=== PATIENT | female | born 1970 | race Caucasian/White ===

== ENCOUNTER 2016-04-23 15:48 | Inpatient (IN) | payer BC, OTHER ==
[~2016-04-23] VITALS: Ht 165.1 cm; Wt 96.8 kg
--- NOTE | 2016-04-23 16:06 | DIAGNOSTIC IMAGING REPORT ---
CT SCAN OF THE BRAIN WITHOUT IV CONTRAST CLINICAL HISTORY: Strokelike symptoms. COMPARISON STUDY: No priors. TECHNIQUE: Unenhanced axial CT scan of the brain is performed from the vertex to the skull base. Automated dose control exposure was utilized. CT DOSE: 537.48 mGy.cm FINDINGS: Brain parenchyma: There is an 11 mm focus of low-attenuation centered in the left thalamus seen on axial image #13. There is no hemorrhage, mass effect, or evidence of acute territorial ischemia by CT criteria. Bright-white matter is preserved. No extra-axial fluid collection is seen. Ventricles, sulci, cisterns: Normal in configuration. Intracranial vasculature: The visualized intracranial vasculature at the skull base is normal in appearance. Calvarium: Unremarkable. Sinuses and mastoids: The visualized paranasal sinuses are clear. The mastoid air cells are well pneumatized. Orbits: The bony orbits are grossly intact. IMPRESSION: 1. There is no hemorrhage, mass effect, or evidence of acute territorial ischemia by CT criteria. 2. There is an 11 mm focus of low attenuation centered in the left thalamus. This suggests age indeterminant lacunar infarct. Consider MRI for further assessment. Electronically signed by: Christopher Saab M.D. 04/23/2016 4:04 PM Dictated Date/Time: 04/23/2016 4:01 PM
--- NOTE | 2016-04-23 16:12 | EMERGENCY ROOM VISIT NOTE ---
History Report prepared by Juan: Jaden Johnson Under the Supervision of: Dr. Devonte Guzman M.D. First contact with patient: 15:58 Stated Complaint: STROKE ALERT History of Present Illness The patient is a 45 year old female who presents to the Emergency Room with complaints of resolved slurred speech starting this morning. The patient started having blurry vision last night. When she got to work this morning, her co-workers noticed that she was having slurred speech and referred her to the Emergency Room. She currently denies any slurring of speech. She currently denies any pain. The patient denies headache, chest pain, shortness of breath, nausea, abdominal pain, or any other complaints. She does not have any medical problems. The patient denies any personal history of migraine headache but has a family history of migraine headaches. Source of History: patient Onset: this morning Position: other (global) Symptom Intensity: No pain currently Quality: other (slurred speech) Timing: resolved Associated Symptoms: No SOB, No abdominal pain, No chest pain, No headache, No nausea Review of Systems See HPI for pertinent positives & negatives. A total of 10 systems reviewed and were otherwise negative. Past Medical & Surgical Medical Problems: (1) CVA (cerebral vascular accident) (2) No Known Active Medical Problems Family History FH: migraine headache Social History Marital Status: Occupation Status: employed Current/Historical Medications Scheduled Calcium Citrate-Vitamin D (Citracal + D3 Maximum), 1 TAB PO DAILY Ocuvite Preservision (Ocuvite Preservision), 1 TAB PO DAILY Scheduled PRN Famotidine (Pepcid), 1 TAB PO DAILY PRN for ACID REFLUX Allergies Coded Allergies: No Known Allergies (Unverified , 04/23/16) Physical Exam Vital Signs Date Time Temp Pulse Resp B/P Pulse Ox O2 Delivery O2 Flow Rate FiO2 04/23/16 17:31 68 18 131/79 98 Room Air 04/23/16 16:48 84 18 140/89 98 Room Air 04/23/16 16:33 70 04/23/16 16:18 98 Room Air 04/23/16 15:52 36.7 77 18 129/88 97 Room Air Physical Exam CONSTITUTIONAL: Anxious, normal speech. HEENT: No icterus, moist mucous membranes NECK: No meningismus, trachea is midline. CARDIOVASCULAR: Regular rate, normal perfusion RESPIRATORY: Unlabored breathing. Clear to auscultation. GASTROINTESTINAL: Non-tender GENITOURINARY: No flank tenderness MUSCULOSKELETAL: Full range of motion NEUROLOGIC: No acute gross focal deficits. Normal finger to nose. No cranial nerve deficits. Memory intact. PSYCHIATRIC: Normal affect SKIN: Normal for ethnicity. Medical Decision & Procedures ER Provider Diagnostic Interpretation: X-ray results as stated below per my interpretation and radiologist interpretation. CT and MRA results as stated below per my review and radiologist interpretation. CHEST ONE VIEW PORTABLE HISTORY: Stroke symptoms. COMPARISON: None. FINDINGS: The lungs are clear. Cardiac silhouette is normal in size. No pleural effusions. No pneumothorax. IMPRESSION: No acute process. Electronically signed by: Markie Sánchez M.D. 04/23/2016 4:57 PM Dictated Date/Time: 04/23/2016 4:[address] SCAN OF THE BRAIN WITHOUT IV CONTRAST CLINICAL HISTORY: Strokelike symptoms. COMPARISON STUDY: No priors. TECHNIQUE: Unenhanced axial CT scan of the brain is performed from the vertex to the skull base. Automated dose control exposure was utilized. CT DOSE: 537.48 mGy.cm FINDINGS: Brain parenchyma: There is an 11 mm focus of low-attenuation centered in the left thalamus seen on axial image #13. There is no hemorrhage, mass effect, or evidence of acute territorial ischemia by CT criteria. Bright-white matter is preserved. No extra-axial fluid collection is seen. Ventricles, sulci, cisterns: Normal in configuration. Intracranial vasculature: The visualized intracranial vasculature at the skull base is normal in appearance. Calvarium: Unremarkable. Sinuses and mastoids: The visualized paranasal sinuses are clear. The mastoid air cells are well pneumatized. Orbits: The bony orbits are grossly intact. IMPRESSION: 1. There is no hemorrhage, mass effect, or evidence of acute territorial ischemia by CT criteria. 2. There is an 11 mm focus of low attenuation centered in the left thalamus. This suggests age indeterminant lacunar infarct. Consider MRI for further assessment. Electronically signed by: Christopher Saab M.D. 04/23/2016 4:04 PM Dictated Date/Time: 04/23/2016 4:01 PM MRA OF THE INTRACRANIAL CIRCULATION WITHOUT CONTRAST CLINICAL HISTORY: Speech difficulties. Visual disturbance. Stroke alert. COMPARISON STUDY: None. TECHNIQUE: Utilizing a 1.5 Kenna magnet and 3-D [id number] technique, unenhanced MRA of the intracranial circulation was obtained. FINDINGS: The bilateral M1, M2, A1 and A2 segments are patent. No abrupt vessel cut off is identified. No aneurysm is identified on this examination. The posterior circulation is intact. IMPRESSION: Unremarkable MRA of the intracranial circulation. Electronically signed by: Lenin Hawley M.D. 04/23/2016 6:51 PM Dictated Date/Time: 04/23/2016 6:49 PM Laboratory Results 04/23/16 16:10 Red Blood Count 4.10, Mean Corpuscular Volume 93.7, Mean Corpuscular Hemoglobin 32.4, Mean Corpuscular Hemoglobin Concent 34.6, Mean Platelet Volume 9.5, Neutrophils (%) (Auto) 62.4, Lymphocytes (%) (Auto) 29.1, Monocytes (%) (Auto) 5.3, Eosinophils (%) (Auto) 2.8, Basophils (%) (Auto) 0.1, Neutrophils # (Auto) 4.83, Lymphocytes # (Auto) 2.25, Monocytes # (Auto) 0.41, Eosinophils # (Auto) 0.22, Basophils # (Auto) 0.01 04/23/16 16:10 Test 04/23/16 16:10 04/23/16 16:13 04/23/16 16:21 White Blood Count 7.74 K/uL (4.8-10.8) Red Blood Count 4.10 M/uL (4.2-5.4) Hemoglobin 13.3 g/dL (12.0-16.0) Hematocrit 38.4 % (37-47) Mean Corpuscular Volume 93.7 fL (80-100) Mean Corpuscular Hemoglobin 32.4 pg (25-34) Mean Corpuscular Hemoglobin Concent 34.6 g/dl (32-36) Platelet Count 410 K/uL (130-400) Mean Platelet Volume 9.5 fL (7.4-10.4) Neutrophils (%) (Auto) 62.4 % Lymphocytes (%) (Auto) 29.1 % Monocytes (%) (Auto) 5.3 % Eosinophils (%) (Auto) 2.8 % Basophils (%) (Auto) 0.1 % Neutrophils # (Auto) 4.83 K/uL (1.4-6.5) Lymphocytes # (Auto) 2.25 K/uL (1.2-3.4) Monocytes # (Auto) 0.41 K/uL (0.11-0.59) Eosinophils # (Auto) 0.22 K/uL (0-0.5) Basophils # (Auto) 0.01 K/uL (0-0.2) RDW Standard Deviation 45.9 fL (36.4-46.3) RDW Coefficient of Variation 13.3 % (11.5-14.5) Immature Granulocyte % (Auto) 0.3 % Immature Granulocyte # (Auto) 0.02 K/uL (0.00-0.02) Prothrombin Time 10.3 SECONDS (9.0-12.0) Prothromb Time International Ratio 1.0 (0.9-1.1) Activated Partial Thromboplast Time 25.1 SECONDS (21.0-31.0) Partial Thromboplastin Ratio 1.0 Est Creatinine Clear Calc Drug Dose 113.7 ml/min Estimated GFR () 117.6 Estimated GFR (Non- 101.4 BUN/Creatinine Ratio 11.5 (10-20) Calcium Level 9.1 mg/dl (8.5-10.1) Total Creatine Kinase 68 U/L (26-192) Creatine Kinase MB < 0.5 ng/ml (0.5-3.6) Creatine Kinase MB Ratio (0-3.0) Troponin I < 0.015 ng/ml (0-0.045) Bedside Hemoglobin 13.3 g/dl (12.0-16.0) Bedside Hematocrit 39 % (37-47) Bedside Sodium 141 mEq/L (135-144) Bedside Potassium 4.0 mEq/L (3.3-5.0) Bedside Chloride 102 mEq/L (101-112) Bedside Total CO2 27 mEq/l (24-31) Anion Gap 17.0 mmol/L (16-25) Bedside Blood Urea Nitrogen 8 mg/dl (7-18) Bedside Creatinine 0.7 mg/dl (0.6-1.3) Bedside Glucose (other) 89 mg/dl (70-99) Bedside Ionized Calcium (Hollie) 1.17 mmol/l (1.12-1.32) Bedside Prothrombin Time INR 1.0 (0.9-1.1) Bedside Glucose 81 mg/dl (70-90) Labs reviewed by ED physician. Medications Administered Medications (Trade) Dose Ordered Sig/Krys Route Start Time Stop Time Status Last Admin Dose Admin Sodium Chloride (Nss 1000ml) 1,000 ml @ 50 mls/hr Q20H IV 04/23/16 16:14 04/23/16 19:06 DC 04/23/16 16:58 50 MLS/HR Aspirin (Aspirin Chew) 324 mg NOW STAT PO 04/23/16 16:17 04/23/16 16:19 DC 04/23/16 17:06 324 MG Lorazepam 1 mg 1 mg NOW STAT IV 04/23/16 17:20 04/23/16 17:21 DC 04/23/16 18:18 1 MG Sodium Chloride (Nss 1000ml) 1,000 ml @ 75 mls/hr [id number] IV 04/23/16 17:54 05/23/16 17:53 04/23/16 19:59 75 MLS/HR ECG Indication: other (Slurred speech) Rate (beats per minute): 67 Rhythm: normal sinus Findings: no ectopy, other (Normal axis; normal ST segments) ED Course 1558: Past medical records reviewed. The patient was evaluated in room B01. A complete history and physical examination was performed. 1614: Sodium Chloride 1000 ml @ 50 mls/hr IV 1617: Aspirin 324 mg PO 1628: I discussed the patient's case with Dr. Lackey, neurologist with [facility]. 1700: I reevaluated the patient who is resting comfortably. 1712: Upon reexamination the patient is resting comfortably. I discussed results and treatment plan with the patient. She verbalizes agreement and understanding. I spoke with AHSAN Page from the [facility] Service. The patient will be evaluated for further management. 1720: As per nurse, the patient reports that she has claustrophobia and will not be able to do the MRI. Ativan Inj 1 mg IV 1721: I reevaluated the patient. Medical Decision Differential diagnosis includes but is not limited to complex migraine, TIA, stroke. 45-year-old presented to the emergency department for evaluation of potential acute stroke. I received medical command on this patient after she arrived to work with dysarthric speech. I evaluated her immediately on arrival to the emergency department in the CT scanner. At that time she was alert, oriented and appropriate with almost normal speech. Review of systems is notable for nonspecific visual disturbances, infrequent twitching, and potential for dysarthria going back almost 15 hours. There may have been a slight slurring at times during my exam but not severe. She otherwise had no focal neurologic deficits. She also had no additional risk factors for stroke. Given the risks and benefits associated with TPA I feel patient would not benefit from thrombolytic therapy at this time. ASA ordered. CT head report noted for possible thalamic ischemia and consultation was obtained with her she Shamika neurology. We agree that TPA not required but additional workup should be completed. Additional screening labs ordered, Ativan IV given to facilitate anxiety associated MRI and admission arranged with hospital service. Consults Time Called: 1625 Consulting Physician: Dr. Lackey, neurologist with [facility] Returned Call: 1626 I discussed the patient's case with Dr. Lackey, neurologist with [facility]. Additional Consults: Time Called: 1710 Consulted Physician: AHSAN Page from the [facility] Service Returned Call: 1714 Additional Comments: I spoke with AHSAN Page from the [facility] Service. Impression Primary Impression: Acute focal neurological deficit Critical Care I have personally spent greater than 30 minutes of critical care time in the direct management of this patient. This includes bedside care, interpretation of diagnostic studies, and testing, discussion with consultants, patient, and family members, and other required patient management activities. This 30 minutes is in excess of all separately billable procedures. Scribe Attestation The scribe's documentation has been prepared under my direction and personally reviewed by me in its entirety. I confirm that the note above accurately reflects all work, treatment, procedures, and medical decision making performed by me. Departure Information Dispostion Being Evaluated By Hospitalist Referrals Reymundo Michaels D.O. (PCP)
[2016-04-23] MEDS ORDERED: SODIUM CHLORIDE 0.9% 1000ML 1,000 ML IV SCH (16:14)
[2016-04-23] MEDS ORDERED: ASPIRIN 324 MG CHEW PO STA (16:17)
[2016-04-23 16:28] LABS: BASO % 0.1 %; BASO ABS # 0.01 K/uL (0-0.2); COMPLETE YES; EOS % 2.8 %; HEMATOCRIT 38.4 % (37-47); IG% 0.3 %; LYMPH % 29.1 %; LYMPH ABS # 2.25 K/uL (1.2-3.4); MEAN CELL VOLUME 93.7 fL (80-100); MEAN CORPUSCULAR HEMOGLOBIN 32.4 pg (25-34); MEAN CORPUSCULAR HGB CONC 34.6 g/dl (32-36); MEAN PLATELET VOLUME 9.5 fL (7.4-10.4); MONO % 5.3 %; NEUT % 62.4 %; PLATELET COUNT 410 K/uL (130-400); WHITE BLOOD COUNT 7.74 K/uL (4.8-10.8)
[2016-04-23 16:29] LABS: ISTAT CREATININE 0.7 mg/dl (0.6-1.3); ISTAT HEMOGLOBIN 13.3 g/dl (12.0-16.0); ISTAT IONIZED CALCIUM 1.17 mmol/l (1.12-1.32)
[2016-04-23 16:35] LABS: BLOOD UREA NITROGEN 8 mg/dl (7-18); BUN/CREATININE RATIO 11.5 (10-20); CALCIUM 9.1 mg/dl (8.5-10.1); CARBON DIOXIDE 25 mmol/L (21-32); CHLORIDE 107 mmol/L (98-107); CREATININE 0.71 mg/dl (0.60-1.20); GLUCOSE 86 mg/dl (70-99); SODIUM 141 mmol/L (136-145)
[2016-04-23 16:42] LABS: PROTHROMBIN TIME (PATIENT) 10.3 SECONDS (9.0-12.0)
--- NOTE | 2016-04-23 16:58 | DIAGNOSTIC IMAGING REPORT ---
CHEST ONE VIEW PORTABLE HISTORY: Stroke symptoms. COMPARISON: None. FINDINGS: The lungs are clear. Cardiac silhouette is normal in size. No pleural effusions. No pneumothorax. IMPRESSION: No acute process. Electronically signed by: Markie Sánchez M.D. 04/23/2016 4:57 PM Dictated Date/Time: 04/23/2016 4:55 PM
[2016-04-23] MEDS ORDERED: FAMO20TA11 PO (17:14)
[2016-04-23] MEDS ORDERED: CALC1TAB9 PO (17:14)
[2016-04-23] MEDS ORDERED: MULT-190 PO (17:14)
[2016-04-23] MEDS ORDERED: LORAZEPAM 2 MG/ML 1 ML VIAL IV STA (17:20)
[2016-04-23] MEDS ORDERED: ACETAMINOPHEN 325 MG TAB PO PRN (18:00)
[2016-04-23] MEDS ORDERED: PHARMACIST DISCHARGE MED REC CONSULT PRN (18:00)
[2016-04-23] MEDS ORDERED: ONDANSETRON INJ 2 MG/ML 2 ML VIAL IV PRN (18:00)
--- NOTE | 2016-04-23 18:30 | History and Physical ---
History & Physical Date & Time of Service: Apr 23, 2016 at 18:11 Chief Complaint: Stroke Alert Primary Care Physician: Reymundo Michaels D.O. History of Present Illness Source: patient Patient is a 45 yr old female with PMH of former Tobacco use disorder and no other significant PMH presents with history of sudden onset of blurry vision and speech disturbance. Patient states that she noticed having blurry vision last night which resolved when she woke up this morning but started to notice to have slurred speech this morning. Patient denies similar symptoms in the past. Her coworker noticed her to have slurred speech and sent to ED for further eval. She states her slurred speech has improved since onset. Currently denies any blurry vision but has dizziness. Denies any history of facial deformity, weakness, numbness, vertigo, headache, chest pain, SOB, bowel/ bladder incontinence, nausea, vomiting, abd pain, fever, chills. Past Medical/Surgical History PMH: No significant PMH; PSH: Tubal ligation Family History FH: migraine headache Father: Hyperlipidemia, DM II, CVA, melanoma Social History Smoking Status: Former Smoker (Quit in June 2015, 1 PPD for 32 yrs) Alcohol Use: none Drug Use: none Marital Status: Occupational Status: employed Allergies Coded Allergies: No Known Allergies (Unverified , 04/23/16) Home Medications Scheduled Calcium Citrate-Vitamin D (Citracal + D3 Maximum), 1 TAB PO DAILY Ocuvite Preservision (Ocuvite Preservision), 1 TAB PO DAILY Scheduled PRN Famotidine (Pepcid), 1 TAB PO DAILY PRN for ACID REFLUX Review of Systems See HPI for pertinent positives & negatives. A total of 10 systems reviewed and were otherwise negative. Physical Exam Vital Signs Date Time Temp Pulse Resp B/P Pulse Ox O2 Delivery O2 Flow Rate FiO2 04/23/16 17:31 68 18 131/79 98 Room Air 04/23/16 16:48 84 18 140/89 98 Room Air 04/23/16 16:33 70 04/23/16 16:18 98 Room Air 04/23/16 15:52 36.7 77 18 129/88 97 Room Air General Appearance: WD/WN, no apparent distress Head: normocephalic, atraumatic Eyes: normal inspection, PERRL, EOMI, sclerae normal ENT: normal ENT inspection, hearing grossly normal, TMs normal, pharynx normal Neck: supple, no JVD, trachea midline Respiratory/Chest: chest non-tender, lungs clear, normal breath sounds, no respiratory distress, no accessory muscle use Cardiovascular: regular rate, rhythm, no edema, no JVD, no murmur Abdomen/GI: normal bowel sounds, non tender, soft, no organomegaly Back: normal inspection Extremities/Musculoskelatal: normal inspection, no calf tenderness, no pedal edema, normal range of motion, non-tender Neurologic/Psych: no motor/sensory deficits, alert, normal mood/affect, normal reflexes, oriented x 3, + pertinent finding (Slurred speech) Skin: normal color, warm/dry Lymphatic: no adenopathy Diagnostics Laboratory Results Results Past 24 Hours Test 04/23/16 16:10 04/23/16 16:13 04/23/16 16:14 04/23/16 16:21 Range/Units White Blood Count 7.74 4.8-10.8 K/uL Red Blood Count 4.10 4.2-5.4 M/uL Hemoglobin 13.3 12.0-16.0 g/dL Hematocrit 38.4 37-47 % Mean Corpuscular Volume 93.7 80-100 fL Mean Corpuscular Hemoglobin 32.4 25-34 pg Mean Corpuscular Hemoglobin Concent 34.6 32-36 g/dl Platelet Count 410 130-400 K/uL Mean Platelet Volume 9.5 7.4-10.4 fL Neutrophils (%) (Auto) 62.4 % Lymphocytes (%) (Auto) 29.1 % Monocytes (%) (Auto) 5.3 % Eosinophils (%) (Auto) 2.8 % Basophils (%) (Auto) 0.1 % Neutrophils # (Auto) 4.83 1.4-6.5 K/uL Lymphocytes # (Auto) 2.25 1.2-3.4 K/uL Monocytes # (Auto) 0.41 0.11-0.59 K/uL Eosinophils # (Auto) 0.22 0-0.5 K/uL Basophils # (Auto) 0.01 0-0.2 K/uL RDW Standard Deviation 45.9 36.4-46.3 fL RDW Coefficient of Variation 13.3 11.5-14.5 % Immature Granulocyte % (Auto) 0.3 % Immature Granulocyte # (Auto) 0.02 0.00-0.02 K/uL Prothrombin Time 10.3 9.0-12.0 SECONDS Prothromb Time International Ratio 1.0 0.9-1.1 Activated Partial Thromboplast Time 25.1 21.0-31.0 SECONDS Partial Thromboplastin Ratio 1.0 Sodium Level 141 136-145 mmol/L Potassium Level 4.0 3.5-5.1 mmol/L Chloride Level 107 98-107 mmol/L Carbon Dioxide Level 25 21-32 mmol/L Anion Gap 9.0 17.0 16-25 mmol/L Blood Urea Nitrogen 8 7-18 mg/dl Creatinine 0.71 0.60-1.20 mg/dl Est Creatinine Clear Calc Drug Dose 113.7 ml/min Estimated GFR () 117.6 Estimated GFR (Non- 101.4 BUN/Creatinine Ratio 11.5 10-20 Random Glucose 86 70-99 mg/dl Calcium Level 9.1 8.5-10.1 mg/dl Total Creatine Kinase 68 26-192 U/L Creatine Kinase MB < 0.5 0.5-3.6 ng/ml Creatine Kinase MB Ratio 0-3.0 Troponin I < 0.015 0-0.045 ng/ml Bedside Hemoglobin 13.3 12.0-16.0 g/dl Bedside Hematocrit 39 37-47 % Bedside Sodium 141 135-144 mEq/L Bedside Potassium 4.0 3.3-5.0 mEq/L Bedside Chloride 102 101-112 mEq/L Bedside Total CO2 27 24-31 mEq/l Bedside Blood Urea Nitrogen 8 7-18 mg/dl Bedside Creatinine 0.7 0.6-1.3 mg/dl Bedside Glucose (other) 89 70-99 mg/dl Bedside Ionized Calcium (Hollie) 1.17 1.12-1.32 mmol/l Bedside Prothrombin Time INR 1.0 0.9-1.1 Bedside Glucose 81 70-90 mg/dl Test 04/23/16 17:03 04/23/16 17:58 Range/Units Diagnostic Radiology CXR: No acute process. CT head: IMPRESSION: 1. There is no hemorrhage, mass effect, or evidence of acute territorial ischemia by CT criteria. 2. There is an 11 mm focus of low attenuation centered in the left thalamus. This suggests age indeterminant lacunar infarct. Consider MRI for further assessment. Electronically signed by: Christopher Saab M.D. 04/23/2016 4:04 PM Impression Assessment and Plan Acute CVA: Admit as inpatient CT head: 11 mm focus of low attenuation centered in the left thalamus. Start on Aspirin, Lipitor Not a candidate for tPA-passed the window period Stroke work up including MRI/MRA head, neck, ECHO, lipid panel, A1C Neuro checks, Consult Neurology Speech and swallow eval Hypercoagulable workup per recommendations from Neurology PT/OT Toxicology screen pending GERD: Stable DVT Px: Lovenox SQ Code status: Full code VTE Prophylaxis VTE Risk Assessment Done? Y/N: Yes Risk Level: Low
--- NOTE | 2016-04-23 18:53 | DIAGNOSTIC IMAGING REPORT ---
MRA OF THE INTRACRANIAL CIRCULATION WITHOUT CONTRAST CLINICAL HISTORY: Speech difficulties. Visual disturbance. Stroke alert. COMPARISON STUDY: None. TECHNIQUE: Utilizing a 1.5 Kenna magnet and 3-D pvmi-pe-xoobph technique, unenhanced MRA of the intracranial circulation was obtained. FINDINGS: The bilateral M1, M2, A1 and A2 segments are patent. No abrupt vessel cut off is identified. No aneurysm is identified on this examination. The posterior circulation is intact. IMPRESSION: Unremarkable MRA of the intracranial circulation. Electronically signed by: Lenin Hawley M.D. 04/23/2016 6:51 PM Dictated Date/Time: 04/23/2016 6:49 PM
[2016-04-23] MEDS ORDERED: MAGNEVIST IV PRN (19:15)
--- NOTE | 2016-04-23 19:28 | DIAGNOSTIC IMAGING REPORT ---
MRI OF THE BRAIN WITHOUT AND WITH IV CONTRAST CLINICAL HISTORY: Visual disturbance. Speech difficulties. COMPARISON STUDY: Head CT performed earlier today. TECHNIQUE: Utilizing a 1.5 Kenna magnet and dedicated coil, multiplanar, multiecho imaging of the brain was performed pre and postcontrast administration. IV administration of 20 mL of Magnevist contrast was uneventful. FINDINGS: There is a 1.5 cm focus of restricted diffusion within the left thalamus which corresponds to the abnormality on prior head CT. There is no mass effect or evidence of hemorrhagic conversion. Otherwise, the brain is unremarkable. Ventricular system is normal. The basilar cisterns are patent. There are no extra-axial collections. No intracranial masses or pathologic enhancement are present. No additional areas of signal abnormality are present. There is mild mucosal thickening of the sinuses. Calvarial signal is maintained. IMPRESSION: 1.5 cm acute left thalamic infarct which corresponds to the abnormality on prior head CT. No mass effect or evidence of hemorrhagic conversion. Electronically signed by: Lenin Hawley M.D. 04/23/2016 7:26 PM Dictated Date/Time: 04/23/2016 7:22 PM
--- NOTE | 2016-04-23 19:36 | DIAGNOSTIC IMAGING REPORT ---
MRA OF THE NECK WITH AND WITHOUT CONTRAST CLINICAL HISTORY: Stroke alert. Visual disturbance. Speech difficulties. COMPARISON STUDY: None. TECHNIQUE: Unenhanced and contrast-enhanced MRA of the neck was performed. Injection of 20 mL of Magnevist IV was uneventful. NASCET criteria were utilized to estimate the degree of carotid stenosis. FINDINGS: The bilateral common carotid, internal carotid and vertebral arteries are patent. There is no significant stenosis. There is no evidence for dissection within the major vasculature of the neck. IMPRESSION: Unremarkable MRA of the neck. Electronically signed by: Lenin Hawley M.D. 04/23/2016 7:34 PM Dictated Date/Time: 04/23/2016 7:32 PM
[2016-04-23] MEDS: ATORVASTATIN 40 MG TAB PO SCH (19:58)
[2016-04-23] MEDS: ENOXAPARIN 40 MG/0.4 ML SYR SC SCH (19:59)
[2016-04-23] MEDS: SODIUM CHLORIDE 0.9% 1000ML 1,000 ML IV SCH (19:59)
[2016-04-23 20:03] VITALS: BP 118/79; PULSE 75; TEMP 37; O2SAT 98; Ht 165.1 cm; Wt 96.8 kg
[2016-04-23 21:58] LABS: BENZODIAZEPINE, URINE NEG (NEG); COCAINE,URINE NEG (NEG); PHENCYCLIDINE, URINE NEG (NEG)
[2016-04-24] VITALS (9 sets, daily range): BP systolic 94–119; BP diastolic 59–76; PULSE 71–87; TEMP 36.6–37.1; O2SAT 95–98
[2016-04-24 06:29] LABS: ESTIMATED AVERAGE GLUCOSE 114 mg/dl; HA1C FLAG Normal (Normal)
[2016-04-24] MEDS: SODIUM CHLORIDE 0.9% 1000ML 1,000 ML IV SCH ×2 (06:46→19:48)
[2016-04-24 07:12] LABS: BASO % 0.2 %; BASO ABS # 0.01 K/uL (0-0.2); COMPLETE YES; EOS % 3.7 %; HEMATOCRIT 35.8 % (37-47); IG% 0.2 %; LYMPH % 31.3 %; LYMPH ABS # 2.03 K/uL (1.2-3.4); MEAN CELL VOLUME 92.7 fL (80-100); MEAN CORPUSCULAR HEMOGLOBIN 31.3 pg (25-34); MEAN CORPUSCULAR HGB CONC 33.8 g/dl (32-36); MEAN PLATELET VOLUME 9.6 fL (7.4-10.4); MONO % 8.6 %; PLATELET COUNT 356 K/uL (130-400); RED BLOOD COUNT 3.86 M/uL (4.2-5.4); WHITE BLOOD COUNT 6.48 K/uL (4.8-10.8)
[2016-04-24 07:37] LABS: BUN/CREATININE RATIO 14.9 (10-20); CALCIUM 8.3 mg/dl (8.5-10.1); CREATININE 0.61 mg/dl (0.60-1.20); POTASSIUM 3.8 mmol/L (3.5-5.1)
[2016-04-24 07:39] LABS: CHOLESTEROL/HDL RATIO 4.1
--- NOTE | 2016-04-24 08:23 | Progress Note ---
Subjective Date of Service: Apr 24, 2016. Subjective Pt evaluation today including: conversation w/ patient, physical exam, lab review, review of studies, review of inpatient medication list Saw/examined the patient in room 218 Slurred speech persists - slightly better this morning Patient feels some left sided weakness Currently tolerating PO intake Problem List Medical Problems: (1) Acute focal neurological deficit Status: Acute Review of Systems Constitutional: + weakness (left sided), No chills, No fatigue, No fever Respiratory: No cough, No shortness of breath, No sputum Cardiac: No chest pain, No edema, No palpitations Abdomen: No diarrhea, No nausea, No pain, No vomiting Neurologic: + problem reported (slurred speech), + weakness (left sided), No balance problems, No memory loss, No numbness/tingling, No paralysis, No vertigo Medications Current Inpatient Medications Medications (Trade) Dose Ordered Sig/Krys Route Start Time Stop Time Status Last Admin Dose Admin Enoxaparin Sodium 40 mg 40 mg Q24H SC 04/23/16 21:00 05/23/16 20:59 04/23/16 19:59 40 MG Sodium Chloride (Nss 1000ml) 1,000 ml @ 75 mls/hr [id number] IV 04/23/16 17:54 05/23/16 17:53 04/24/16 06:46 75 MLS/HR Acetaminophen (Tylenol Tab) 650 mg Q4H PRN PO 04/23/16 18:00 05/23/16 17:59 Ondansetron HCl (Zofran Inj) 4 mg Q6H PRN IV 04/23/16 18:00 05/23/16 17:59 Atorvastatin Calcium (Lipitor Tab) 40 mg QAM PO 04/23/16 18:00 05/23/16 17:59 04/23/16 19:58 40 MG Aspirin (Ecotrin Tab) 81 mg QAM PO 04/24/16 09:00 05/24/16 08:59 Miscellaneous Information (Pharmacist Discharge Med Rec Consult) 1 ea UD PRN N/A 04/23/16 18:00 05/23/16 17:59 Gadopentetate Dimeglumine (Magnevist) 20 ml UD PRN IV 04/23/16 19:15 04/27/16 19:14 Objective Vital Signs Date Time Temp Pulse Resp B/P Pulse Ox O2 Delivery O2 Flow Rate FiO2 04/24/16 07:21 37.0 79 20 105/72 97 Room Air 04/24/16 04:21 36.6 71 18 100/67 95 Room Air 04/24/16 04:00 Room Air 04/24/16 00:08 37.1 76 18 94/59 97 Room Air 04/23/16 23:59 Room Air 04/23/16 20:03 37.0 75 16 118/79 98 Room Air 04/23/16 18:15 74 18 142/78 98 Room Air 04/23/16 17:31 68 18 131/79 98 Room Air 04/23/16 16:48 84 18 140/89 98 Room Air 04/23/16 16:33 70 04/23/16 16:18 98 Room Air 04/23/16 15:52 36.7 77 18 129/88 97 Room Air Physical Exam General Appearance: no apparent distress, + obese, + pertinent finding (no acute distress - noted slurred speech at baseline) ENT: hearing grossly normal Respiratory/Chest: chest non-tender, lungs clear, normal breath sounds, no respiratory distress, no accessory muscle use Cardiovascular: regular rate, rhythm, no edema, no murmur Abdomen: normal bowel sounds, non tender, soft Extremities: normal inspection, no pedal edema Neurologic/Psychiatric: desktop specialist II-XII nml as tested, no motor/sensory deficits, alert, normal mood/affect, oriented x 3 Skin: normal color Laboratory Results Last 24 Hours Test 04/23/16 16:10 04/23/16 16:13 04/23/16 16:21 04/23/16 18:15 White Blood Count 7.74 K/uL Red Blood Count 4.10 M/uL Hemoglobin 13.3 g/dL Hematocrit 38.4 % Mean Corpuscular Volume 93.7 fL Mean Corpuscular Hemoglobin 32.4 pg Mean Corpuscular Hemoglobin Concent 34.6 g/dl Platelet Count 410 K/uL Mean Platelet Volume 9.5 fL Neutrophils (%) (Auto) 62.4 % Lymphocytes (%) (Auto) 29.1 % Monocytes (%) (Auto) 5.3 % Eosinophils (%) (Auto) 2.8 % Basophils (%) (Auto) 0.1 % Neutrophils # (Auto) 4.83 K/uL Lymphocytes # (Auto) 2.25 K/uL Monocytes # (Auto) 0.41 K/uL Eosinophils # (Auto) 0.22 K/uL Basophils # (Auto) 0.01 K/uL RDW Standard Deviation 45.9 fL RDW Coefficient of Variation 13.3 % Immature Granulocyte % (Auto) 0.3 % Immature Granulocyte # (Auto) 0.02 K/uL Prothrombin Time 10.3 SECONDS Prothromb Time International Ratio 1.0 Activated Partial Thromboplast Time 25.1 SECONDS Partial Thromboplastin Ratio 1.0 Sodium Level 141 mmol/L Potassium Level 4.0 mmol/L Chloride Level 107 mmol/L Carbon Dioxide Level 25 mmol/L Anion Gap 9.0 mmol/L 17.0 mmol/L Blood Urea Nitrogen 8 mg/dl Creatinine 0.71 mg/dl Est Creatinine Clear Calc Drug Dose 113.7 ml/min Estimated GFR () 117.6 Estimated GFR (Non- 101.4 BUN/Creatinine Ratio 11.5 Random Glucose 86 mg/dl Estimated Average Glucose 114 mg/dl Hemoglobin A1c 5.6 % Calcium Level 9.1 mg/dl Total Creatine Kinase 68 U/L Creatine Kinase MB < 0.5 ng/ml Creatine Kinase MB Ratio Troponin I < 0.015 ng/ml Bedside Hemoglobin 13.3 g/dl Bedside Hematocrit 39 % Bedside Sodium 141 mEq/L Bedside Potassium 4.0 mEq/L Bedside Chloride 102 mEq/L Bedside Total CO2 27 mEq/l Bedside Blood Urea Nitrogen 8 mg/dl Bedside Creatinine 0.7 mg/dl Bedside Glucose (other) 89 mg/dl Bedside Ionized Calcium (Hollie) 1.17 mmol/l Bedside Prothrombin Time INR 1.0 Bedside Glucose 81 mg/dl Erythrocyte Sedimentation Rate 23 mm/hr Test 04/24/16 06:48 White Blood Count 6.48 K/uL Red Blood Count 3.86 M/uL Hemoglobin 12.1 g/dL Hematocrit 35.8 % Mean Corpuscular Volume 92.7 fL Mean Corpuscular Hemoglobin 31.3 pg Mean Corpuscular Hemoglobin Concent 33.8 g/dl Platelet Count 356 K/uL Mean Platelet Volume 9.6 fL Neutrophils (%) (Auto) 56.0 % Lymphocytes (%) (Auto) 31.3 % Monocytes (%) (Auto) 8.6 % Eosinophils (%) (Auto) 3.7 % Basophils (%) (Auto) 0.2 % Neutrophils # (Auto) 3.63 K/uL Lymphocytes # (Auto) 2.03 K/uL Monocytes # (Auto) 0.56 K/uL Eosinophils # (Auto) 0.24 K/uL Basophils # (Auto) 0.01 K/uL RDW Standard Deviation 45.0 fL RDW Coefficient of Variation 13.2 % Immature Granulocyte % (Auto) 0.2 % Immature Granulocyte # (Auto) 0.01 K/uL Sodium Level 142 mmol/L Potassium Level 3.8 mmol/L Chloride Level 107 mmol/L Carbon Dioxide Level 25 mmol/L Anion Gap 10.0 mmol/L Blood Urea Nitrogen 9 mg/dl Creatinine 0.61 mg/dl Est Creatinine Clear Calc Drug Dose 131.2 ml/min Estimated GFR () 125.1 Estimated GFR (Non- 108.0 BUN/Creatinine Ratio 14.9 Random Glucose 88 mg/dl Calcium Level 8.3 mg/dl Triglycerides Level 133 mg/dl Cholesterol Level 169 mg/dl HDL Cholesterol 41 mg/dl LDL Cholesterol, Calculated 101 mg/dl VLDL Cholesterol, Calculated 27 mg/dl Cholesterol/HDL Ratio 4.1 Assessment and Plan This is a 45 year old female with PMH of past tobacco use (quit in June 2015) - presents with slurred speech and found to have an acute CVA Acute Left Thalamic CVA * Brain MRI = 1.5cm acute left thalamic CVA * patient started on aspirin and statin * neuro checks * PT/OT/speech * hypercoagulable w/up is pending * neuro consult pending for further recommendations * will monitor in tele to r/o arrhythmias DVT ppx * Lovenox FULL CODE
[2016-04-24] MEDS: ASPIRIN 81 MG ECTAB PO SCH (08:32)
[2016-04-24] MEDS: ATORVASTATIN 40 MG TAB PO SCH (08:33)
[2016-04-24] MEDS ORDERED: CLOPIDOGREL BISULFATE 75 MG TAB PO ONE (10:15)
--- NOTE | 2016-04-24 10:48 | Neurology Consultation ---
Neurology Consultation Date of Consultation: Apr 24, 2016. Attending Physician: Alonso Weinberg DO Primary Care Physician: Reymundo Michaels D.O. 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 She also had a headache but went to bed. she states she had some blurred vision and and left sided weakness. Her coworker thought she had some slurred speech and they brought her to the ED. She was a 32 year smoker and quit last year. She states she has no other medical issues never had an irregular heart beat, HTN, DM, blood clot in leg. Her father and a grandmother both had strokes but she is unsure at what age. She is not aware of any other medical issues in her family such as heart disease, DM, HTN. denies CP, SOB, abdominal pain, current blurred vision, + slurred speech, left sided weakness Past Medical/Surgical History Medical Problems: (1) Acute focal neurological deficit Status: Acute Social History Smoking Status: Former smoker Alcohol Use: none Drug Use: none Marital Status: Occupation Status: employed Allergies Coded Allergies: No Known Allergies (Unverified , 04/23/16) Current Inpatient Medications Current Inpatient Medications Medications (Trade) Dose Ordered Sig/Krys Route Start Time Stop Time Status Last Admin Dose Admin Enoxaparin Sodium 40 mg 40 mg Q24H SC 04/23/16 21:00 05/23/16 20:59 04/23/16 19:59 40 MG Sodium Chloride (Nss 1000ml) 1,000 ml @ 75 mls/hr [id number] IV 04/23/16 17:54 05/23/16 17:53 04/24/16 06:46 75 MLS/HR Acetaminophen (Tylenol Tab) 650 mg Q4H PRN PO 04/23/16 18:00 05/23/16 17:59 Ondansetron HCl (Zofran Inj) 4 mg Q6H PRN IV 04/23/16 18:00 05/23/16 17:59 Atorvastatin Calcium (Lipitor Tab) 40 mg QAM PO 04/23/16 18:00 05/23/16 17:59 04/24/16 08:33 40 MG Aspirin (Ecotrin Tab) 81 mg QAM PO 04/24/16 09:00 05/24/16 08:59 04/24/16 08:32 81 MG Miscellaneous Information (Pharmacist Discharge Med Rec Consult) 1 ea UD PRN N/A 04/23/16 18:00 05/23/16 17:59 Gadopentetate Dimeglumine (Magnevist) 20 ml UD PRN IV 04/23/16 19:15 04/27/16 19:14 Clopidogrel Bisulfate (plAVix TAB) 75 mg QAM PO 04/25/16 09:00 05/25/16 08:59 Physical Exam Vital Signs (Past 24 Hrs): Date Time Temp Pulse Resp B/P Pulse Ox O2 Delivery O2 Flow Rate FiO2 04/24/16 08:00 97 Room Air 04/24/16 07:21 37.0 79 20 105/72 97 Room Air 04/24/16 04:21 36.6 71 18 100/67 95 Room Air 04/24/16 04:00 Room Air 04/24/16 00:08 37.1 76 18 94/59 97 Room Air 04/23/16 23:59 Room Air 04/23/16 20:03 37.0 75 16 118/79 98 Room Air 04/23/16 18:15 74 18 142/78 98 Room Air 04/23/16 17:31 68 18 131/79 98 Room Air 04/23/16 16:48 84 18 140/89 98 Room Air 04/23/16 16:33 70 04/23/16 16:18 98 Room Air 04/23/16 15:52 36.7 77 18 129/88 97 Room Air Physical Exam: Constitutional: appearance nourished, healthy and normal Ears, Nose, Mouth and Throat: mucous membranes moist, no injection and skin normal, eyes normal Cardiovascular: normal S-1 and S-2 and regular rate and rhythm Respiratory: clear to auscultation (CTA) and no rales, rhonchi or wheeze Musculoskeletal: no peripheral edema and good distal pulses Skin: no stigmata of neurocutaneous disease noted and normal and intact Eyes: extraocular muscles intact (EOMI) and pupils equal, round and reactive to light (PERRL), good vascular pulsations, disc flat NEUROLOGIC EXAMINATION: Mental status: Alert and interactive Oriented to full date and location Oriented to person Speech slight slurring of some words Cranial Nerves smile, eye brow raise symmetric tongue midline Reflexes: Deep tendon reflexes were symmetrical and graded 2/5. Plantar responses were flexor. Sensory: no sensory deficits, to cool or vibration Coordination: Romberg absent Gait/Stance: Posture normal. Gait normal: with steady with steps, base, turning, and tandem gait. Motor: Negative for pronator drift of out stretched arms with eyes closed. 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 bilaterally 5/5, hip flex patellar flex ext plantar flex ext 5/5 bilaterally Laboratory Results Past 24 Hours: 04/24/16 06:48 Red Blood Count 3.86, Mean Corpuscular Volume 92.7, Mean Corpuscular Hemoglobin 31.3, Mean Corpuscular Hemoglobin Concent 33.8, Mean Platelet Volume 9.6, Neutrophils (%) (Auto) 56.0, Lymphocytes (%) (Auto) 31.3, Monocytes (%) (Auto) 8.6, Eosinophils (%) (Auto) 3.7, Basophils (%) (Auto) 0.2, Neutrophils # (Auto) 3.63, Lymphocytes # (Auto) 2.03, Monocytes # (Auto) 0.56, Eosinophils # (Auto) 0.24, Basophils # (Auto) 0.01 04/24/16 06:48 Test 04/23/16 16:10 04/23/16 16:13 04/23/16 16:21 04/23/16 18:15 Prothrombin Time 10.3 SECONDS (9.0-12.0) Prothromb Time International Ratio 1.0 (0.9-1.1) Activated Partial Thromboplast Time 25.1 SECONDS (21.0-31.0) Partial Thromboplastin Ratio 1.0 Estimated Average Glucose 114 mg/dl Hemoglobin A1c 5.6 % (4.5-5.6) Total Creatine Kinase 68 U/L (26-192) Creatine Kinase MB < 0.5 ng/ml (0.5-3.6) Creatine Kinase MB Ratio (0-3.0) Troponin I < 0.015 ng/ml (0-0.045) Bedside Hemoglobin 13.3 g/dl (12.0-16.0) Bedside Hematocrit 39 % (37-47) Bedside Sodium 141 mEq/L (135-144) Bedside Potassium 4.0 mEq/L (3.3-5.0) Bedside Chloride 102 mEq/L (101-112) Bedside Total CO2 27 mEq/l (24-31) Bedside Blood Urea Nitrogen 8 mg/dl (7-18) Bedside Creatinine 0.7 mg/dl (0.6-1.3) Bedside Glucose (other) 89 mg/dl (70-99) Bedside Ionized Calcium (Hollie) 1.17 mmol/l (1.12-1.32) Bedside Prothrombin Time INR 1.0 (0.9-1.1) Bedside Glucose 81 mg/dl (70-90) Erythrocyte Sedimentation Rate 23 mm/hr (0-21) Test 04/24/16 06:48 White Blood Count 6.48 K/uL (4.8-10.8) Red Blood Count 3.86 M/uL (4.2-5.4) Hemoglobin 12.1 g/dL (12.0-16.0) Hematocrit 35.8 % (37-47) Mean Corpuscular Volume 92.7 fL (80-100) Mean Corpuscular Hemoglobin 31.3 pg (25-34) Mean Corpuscular Hemoglobin Concent 33.8 g/dl (32-36) Platelet Count 356 K/uL (130-400) Mean Platelet Volume 9.6 fL (7.4-10.4) Neutrophils (%) (Auto) 56.0 % Lymphocytes (%) (Auto) 31.3 % Monocytes (%) (Auto) 8.6 % Eosinophils (%) (Auto) 3.7 % Basophils (%) (Auto) 0.2 % Neutrophils # (Auto) 3.63 K/uL (1.4-6.5) Lymphocytes # (Auto) 2.03 K/uL (1.2-3.4) Monocytes # (Auto) 0.56 K/uL (0.11-0.59) Eosinophils # (Auto) 0.24 K/uL (0-0.5) Basophils # (Auto) 0.01 K/uL (0-0.2) RDW Standard Deviation 45.0 fL (36.4-46.3) RDW Coefficient of Variation 13.2 % (11.5-14.5) Immature Granulocyte % (Auto) 0.2 % Immature Granulocyte # (Auto) 0.01 K/uL (0.00-0.02) Anion Gap 10.0 mmol/L (3-11) Est Creatinine Clear Calc Drug Dose 131.2 ml/min Estimated GFR () 125.1 Estimated GFR (Non- 108.0 BUN/Creatinine Ratio 14.9 (10-20) Calcium Level 8.3 mg/dl (8.5-10.1) Triglycerides Level 133 mg/dl (0-150) Cholesterol Level 169 mg/dl (0-200) HDL Cholesterol 41 mg/dl LDL Cholesterol, Calculated 101 mg/dl VLDL Cholesterol, Calculated 27 mg/dl Cholesterol/HDL Ratio 4.[address] head- There is no hemorrhage, mass effect, or evidence of acute territorial ischemia by CT criteria. There is an 11 mm focus of low attenuation centered in the left thalamus. This suggests age indeterminant lacunar infarct. Consider MRI for further assessment. MRI brain with and without- : 1.5 cm acute left thalamic infarct which corresponds to the abnormality on prior head CT. No mass effect or evidence of hemorrhagic conversion. MRA head and neck -both Unremarkable MRA of the intracranial circulation. Impression 45 year old female s/p CVA Plan 1. aspirin 81 mg and added plavix 75 mg will need to continue for 3 months then aspirin only for a life time 2. speech, PT/OT for and discharge needs 3. hypercoag study pending 4. TTE pending 5. keep LDL <70 6. risk facture previous smoker 7. will need a cardionet as out patient if no source is found 8. evaluation of venous system with CT abd pelvis with IV contrast only and venous doppler b/l UE/LE I have seen and discussed above patient with Dr Alena Gutiérrez, neurology Pt seen and examined. Hx reviewed. Former smoker, no hx of miscarriage, DVT. Has been well. Sudden dysarthria +/- difficulty with R side. MRI L thalamic lacune. MRA no high grade stenosis,sinus rhythm. Poss PFO. Exam mod dysarthria, marginal flattening of R NLF at rest only. 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 LE equal, no sensory findings. No aphasia. No arm or leg swelling or tenderness. Imp L thalamic infarct, small vessel, suspect atherosclerotic rather than embolic. Agree with ASA, Plavix, statin. Re poss PFO , infarct likely not embolic, no clinical or radiographic evidence of other infarct. Rec CT abd pelvis, eval for deep venous thrombosis, UE and LE venous doppler. Hypercoag state work-up. PING as outpt. Will consider cardionet as outpt but this does not appear to be cardioembolic. JOEL Gutiérrez MD
--- NOTE | 2016-04-24 13:06 | ECHOCARDIOGRAM REPORT ---
*NOTICE TO RECEIVING [employer] This information is strictly Confidential and protected under [place] law. [place] law prohibits you from making any further disclosure of this information unless further disclosure is expressly permitted by the written consent of the person to whom it pertains or is authorized by law. A general authorization for the release of medical or other information is not sufficient for this purpose. Hospital accepts no responsibility if the information is made available to any other person, INCLUDING THE PATIENT. Interpretation Summary * Name: EDIN RAMIREZ Study Date: 04/24/2016 07:40 AM BP: 100/67 mmHg * Patient Location: [facility] HR: 71 * : 1970 (M/d/yyyy) Gender: Female Height: 65 in * Age: 45 yrs Ethnicity: [place] Weight: 216 lb * Ordering Physician: Blanca Rousseau * Referring Physician: Self, Referred * Performed By: Jamie Nava RCS * * Reason For Study: CVA * BSA: 2.0 m2 * The study was technically adequate. * -- Conclusions -- * The left ventricular wall motion is normal. * There is normal left ventricular wall thickness. * The LV Ejection Fraction = 60-65%. * The left ventricular diastolic function is abnormal. * A small PFO is suspected. A mild right to left interatrial shunt noted with administration of agitated saline contrast. Procedure Details * A complete two-dimensional transthoracic echocardiogram was performed (2D, M-mode, Doppler and color flow Doppler). * A saline contrast injection was performed to assess for cardiac shunting. * The injection was performed through an intravenous line in the right arm. * The attending nurse who injected the saline contrast was Tom Lema RN. * A total of 20 cc of agitated saline was given. Left Ventricle * The left ventricle is normal in size. * There is normal left ventricular wall thickness. * Ejection Fraction = 60-65%. * Left ventricular systolic function is normal. * The left ventricular wall motion is normal. Right Ventricle * The right ventricle is normal size. * The right ventricular systolic function is normal as assessed by tricuspid annular plane systolic excursion (TAPSE) (normal >1.5 cm). Atria * The left atrial size is normal. * Right atrial size is normal. * A small PFO is suspected. A mild right to left interatrial shunt noted with administration of agitated saline contrast. Mitral Valve * The mitral valve is normal. * There is no mitral valve stenosis. * Significant mitral regurgitation is absent. Tricuspid Valve * The tricuspid valve is normal. * There is no tricuspid stenosis. * There is trace tricuspid regurgitation. Aortic Valve * The aortic valve is trileaflet. * Aortic stenosis is absent. * There is no significant aortic regurgitation. Pulmonic Valve * The pulmonary valve is not well seen, but the Doppler examination is normal without significant regurgitation or stenosis. Great Vessels * The aortic root and proximal ascending aorta are normal sized. Pericardium/Pleural * There is no pericardial effusion. Great Vessels * Normal inferior vena cava diameter and respiratory variation suggests normal central venous pressure. * Normal inferior vena cava size and collapsability with sniff indicates a normal right atrial pressure of 3 mmHg Left Ventricular Diastolic Function * The left ventricular diastolic function is abnormal. MMode 2D Measurements and Calculations IVSd 0.95 cm IVSs 1.2 cm LVIDd 3.9 cm LVIDs 2.6 cm LVPWd 1.0 cm LVPWs 1.2 cm IVS/LVPW 0.94 FS 32.9 % EDV(Teich) 66.7 ml ESV(Teich) 25.4 ml EF(Teich) 62.0 % EDV(cubed) 60.2 ml ESV(cubed) 18.2 ml EF(cubed) 69.7 % % IVS thick 26.6 % % LVPW thick 16.2 % LV mass(C)d 119.5 grams LV mass(C)dI 58.5 grams/m\S\2 LV mass(C)s 89.9 grams LV mass(C)sI 44.0 grams/m\S\2 CO(Teich) 3.0 l/min CI(Teich) 1.5 l/min/m\S\2 SV(Teich) 41.3 ml SI(Teich) 20.2 ml/m\S\2 CO(cubed) 3.0 l/min CI(cubed) 1.5 l/min/m\S\2 SV(cubed) 42.0 ml SI(cubed) 20.5 ml/m\S\2 Ao root diam 2.8 cm Ao root area 6.1 cm\S\2 ACS 1.4 cm LA dimension 3.0 cm LA/Ao 1.1 LVAd ap4 25.2 cm\S\2 LVLd ap4 8.1 cm EDV(MOD-sp4) 65.0 ml LVAs ap4 12.6 cm\S\2 LVLs ap4 6.5 cm ESV(MOD-sp4) 20.0 ml EF(MOD-sp4) 69.2 % LVAd ap2 34.0 cm\S\2 LVLd ap2 9.3 cm EDV(MOD-sp2) 103.0 ml LVAs ap2 16.3 cm\S\2 LVLs ap2 6.7 cm ESV(MOD-sp2) 35.0 ml EF(MOD-sp2) 66.0 % CO(MOD-sp4) 3.2 l/min CI(MOD-sp4) 1.6 l/min/m\S\2 SV(MOD-sp4) 45.0 ml SI(MOD-sp4) 22.0 ml/m\S\2 CO(MOD-sp2) 4.9 l/min CI(MOD-sp2) 2.4 l/min/m\S\2 SV(MOD-sp2) 68.0 ml SI(MOD-sp2) 33.3 ml/m\S\2 Doppler Measurements and Calculations MV E max winston 100.2 cm/sec MV A max winston 54.3 cm/sec MV E/A 1.8 MV P1/2t max winston 111.3 cm/sec MV P1/2t 58.6 msec MVA(P1/2t) 3.8 cm\S\2 MV dec slope 556.2 cm/sec\S\2 MV dec time 0.20 sec Ao V2 max 141.2 cm/sec Ao max PG 8.0 mmHg Ao max PG (full) 1.3 mmHg LV V1 max PG 6.7 mmHg LV V1 max 129.3 cm/sec PA V2 max 110.2 cm/sec PA max PG 4.9 mmHg TR max winston 222.8 cm/sec
--- NOTE | 2016-04-24 15:07 | CARDIOLOGY CONSULTATION ---
DATE OF CONSULTATION: 04/24/2016 HISTORY OF PRESENT ILLNESS: Brigitte Bourgeois is a 45-year-old female seen in cardiology consultation per the request of Dr. Weinberg for evaluation of PFO with recent presentation consistent with stroke. 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 On Wednesday evening, she came home from her job and had some stuttering speech and headache. She went to bed. , she had some blurred vision and left-sided weakness. A coworker noted her symptoms and she was therefore brought to the Emergency Department. At this point, her symptoms have for the most part with completely resolved. She has some degree of difficulty with word finding and some slurring speech, but I sense no other neurologic defects. Her EKG and telemetry has revealed sinus rhythm thus far with no evidence of atrial fibrillation. A transthoracic echocardiogram performed today 04/24/2016 revealed normal left ventricular wall motion and normal LV ejection fraction. No significant valvular heart disease was noted with the exception of trace tricuspid regurgitation. A small PFO is suspected. A mild right to left interatrial shunt was noted with the administration of agitated saline contrast. PAST MEDICAL HISTORY: The patient states that she has no chronic medical problems. PAST SURGICAL HISTORY: Remote tubal ligation. FAMILY HISTORY: Notable for coronary artery disease in her grandfathers. Her father has dyslipidemia, type 2 diabetes mellitus, stroke and melanoma. SOCIAL HISTORY: She is a former smoker having quit in June 2015 and smoked 1 pack per day for 32 years. She denies chronic congestion of alcohol. 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 ALLERGIES: No known drug allergies. HOME MEDICATIONS: 1. Calcium citrate/vitamin D 1 tablet by mouth daily. 2. Ocuvite 1 tablet by mouth daily. 3. Pepcid 1 tablet daily as needed for reflux symptoms. CURRENT HOSPITAL MEDICATIONS: 1. Aspirin 81 mg by mouth daily. 2. Atorvastatin 40 mg by mouth daily. 3. Clopidogrel 75 mg by mouth daily. 4. Enoxaparin 40 mg subcutaneous daily. 5. Acetaminophen 650 mg every 4 hours as needed for pain or fever. COMPREHENSIVE REVIEW OF SYSTEMS: Otherwise, unremarkable other than that stated above. PHYSICAL EXAMINATION: VITAL SIGNS: Temperature is 37.1, heart rate 78, blood pressure 107/72, pulse oximetry 97% on room air. GENERAL APPEARANCE: Awake and oriented x3, in no acute distress. HEENT: Extraocular muscles were intact. Pupils react to light. NECK: No bruits or cervical lymphadenopathy. CARDIOVASCULAR: Regular rate and rhythm. No murmurs, rubs or gallops. ABDOMEN: Positive bowel sounds. Soft, nontender, and nondistended. EXTREMITIES: No edema. NEUROLOGIC: Occasional slurred speech and word finding difficulties. DIAGNOSTIC DATA: Unremarkable MRA of the brain. Unremarkable MRA of the neck. MRI of the brain performed 04/23/2016 revealed a 1.5 cm acute left thalamic infarct which corresponded to the abnormality in the prior CT of the brain. No evidence of hemorrhagic conversion. EKG performed 04/23/2016 at 1701 reveals normal sinus rhythm at 67 beats per minute, otherwise normal. DIAGNOSTIC DATA: Hemoglobin 12.1, platelet count 356. Erythrocyte sedimentation rate borderline elevated at 23 mm/hour. Sodium 142, potassium 3.8. Kidney function is normal. Total cholesterol 133, LDL cholesterol 101, homocystine level is currently pending. Her toxicology screen was positive for THC. EMMY screen, anticardiolipin antibodies are currently pending. FINAL IMPRESSION: 1. A 45-year-old female presented with neurologic symptoms such as slurred speech and was found to have a 1.5 cm left thalamic infarct on brain MRI. 2. Echocardiogram with suggestion of small patent foramen ovale with mild interatrial shunt. 3. Cigarette smoking, smoked for 32 years, quit a month ago. 4. Toxicology screen positive for THC. DISCUSSION AND PLAN: I was asked to see the patient regarding further evaluation of PFO with transesophageal echocardiogram. At present time, I recommend continuing antiplatelet therapy with aspirin and clopidogrel. Determining the nature of the PFO would be helpful. In this case, the transthoracic echocardiogram serves as a screening test, but I think the anatomy needs to be better delineated to ensure that the PFO is there moving forward. The patient states that she has a significant gag reflex with activities such as brushing her teeth. She also states that she snores. Further outpatient considerations include screening for obstructive sleep apnea with a sleep medicine consultation. Because today is Wednesday and I anticipate the patient will be stable for discharge over the weekend, I am going to make arrangements for her to have an appointment to return for an outpatient transesophageal echocardiogram next week. Dr. Bryant and Dr. Guillaume are both here in the mornings next week, and the procedure will likely be performed with one of them. I have made arrangements for the patient to return on , April 30, 2016 for outpatient PING. Pt should be NPO after midnight night before the PING ,except for her medications which she can take with a sip of water. Patient arrival time to [facility] Registration Desk is 6:30 am. KUSH
[2016-04-24] MEDS ORDERED: OPTIRAY 320 IV PRN (15:45)
--- NOTE | 2016-04-24 16:43 | DIAGNOSTIC IMAGING REPORT ---
CT ABD/PELVIS IV CONTRAST ONLY CLINICAL HISTORY: Suspected venous thrombosis. COMPARISON STUDY: None. TECHNIQUE: Following the IV administration of 116 mL of Optiray-320, CT scan of the abdomen and pelvis was performed from the lung bases to the proximal femurs. Images are reviewed in the axial, sagittal, and coronal planes. IV contrast was administered without complication. CT DOSE: 723.89 mGy.cm FINDINGS: Lower chest: There are mild bibasal atelectatic changes. There are multiple pulmonary nodules visualized. There is a 4 mm pleural-based right middle lobe nodule as visualized in image #10/476. There is a 6 mm pleural-based right middle lobe pulmonary nodule as visualized in image #8/476. There is a 4 mm right lower lobe pulmonary nodule as visualized on image #11/476. There is a 4 mm right lower lobe pulmonary nodule as visualized #18/476. There is a 7 mm subpleural lingular nodule as visualized in image #26/476. There is a 4 mm left lower lobe perifissural nodule as visualized in image #5/476. Liver: The contrast-enhanced liver is normal in size, contour, and attenuation. There is no intrahepatic biliary ductal dilatation. The hepatic veins and portal veins are patent. Gallbladder: Unremarkable. Spleen: There are multiple splenic granulomas. No solid masses are visualized. Pancreas: Unremarkable. Adrenal glands: Unremarkable. Kidneys: There is symmetric renal cortical enhancement. The kidneys are normal in size without hydronephrosis. Bowel: There are no transition zones indicate bowel obstruction. There are no findings to indicate acute appendicitis. There are no findings to indicate acute diverticulitis. Peritoneum: There is no intraperitoneal free air or abdominal ascites. Vasculature: The abdominal aorta is normal in course and caliber. There are no CT findings to indicate iliac or IVC thrombosis. The portal vein appears patent. The hepatic veins appear patent. The splenic vein appears patent. Adenopathy: None. Pelvic viscera: The uterus appears surgically absent. Skeletal structures: No destructive osseous lesions are seen. IMPRESSION: 1. No evidence of bowel obstruction. No evidence of free air 2. No acute inflammatory changes 3. No CT evidence of venous thrombosis 4. Multiple nonspecific bilateral subcentimeter pulmonary nodules. Electronically signed by: Prudencio Diez M.D. 04/24/2016 4:41 PM Dictated Date/Time: 04/24/2016 4:34 PM
[2016-04-24] MEDS: ENOXAPARIN 40 MG/0.4 ML SYR SC SCH (19:48)
--- NOTE | 2016-04-25 00:53 | DIAGNOSTIC IMAGING REPORT ---
ULTRASOUND BILATERAL LOWER EXTREMITY VENOUS CLINICAL HISTORY: Stroke. COMPARISON STUDY: No priors. TECHNIQUE: Real-time, grayscale, and color Doppler sonography of the deep veins of the right and left lower extremity was performed from the inguinal crease to the calf. Compression and augmentation were utilized. FINDINGS: There is no sonographic evidence of deep venous thrombosis identified in the right or left lower extremity. The common femoral, superficial femoral, and popliteal veins are patent and normally compressible bilaterally. The greater saphenous vein and the profunda femoris vein at the junction with the common femoral vein are clear in both legs. The visualized calf veins are patent bilaterally. IMPRESSION: There is no sonographic evidence of deep venous thrombosis identified in the right or left lower extremity. Electronically signed by: Christopher Saab M.D. 04/25/2016 12:51 AM Dictated Date/Time: 04/25/2016 12:50 AM
--- NOTE | 2016-04-25 00:55 | DIAGNOSTIC IMAGING REPORT ---
ULTRASOUND BILATERAL UPPER EXTREMITY VENOUS CLINICAL HISTORY: Stroke. COMPARISON STUDY: No priors. TECHNIQUE: Real-time, grayscale, and color Doppler sonography of the deep veins of the right and left upper extremity is performed. Compression and augmentation were utilized. FINDINGS: There is no sonographic evidence of deep venous thrombosis identified in the right or left upper extremity. The internal jugular, axillary, and brachial veins are patent and normally compressible bilateral. Normal venous waveforms and augmentation are seen within the right and left subclavian vein. The cephalic and basilic veins are clear in both lower. The visualized radial and ulnar veins are patent bilaterally. IMPRESSION: There is no sonographic evidence of deep venous thrombosis identified in the right or left upper extremity. Electronically signed by: Christopher Saab M.D. 04/25/2016 12:53 AM Dictated Date/Time: 04/25/2016 12:51 AM
[2016-04-25 03:35] VITALS: BP 111/75; PULSE 72; TEMP 36.9; O2SAT 97
[2016-04-25 07:07] LABS: BASO % 0.4 %; BASO ABS # 0.02 K/uL (0-0.2); COMPLETE YES; EOS % 4.1 %; HEMATOCRIT 34.3 % (37-47); IG% 0.2 %; LYMPH % 40.7 %; LYMPH ABS # 2.27 K/uL (1.2-3.4); MEAN CELL VOLUME 93.5 fL (80-100); MEAN CORPUSCULAR HEMOGLOBIN 31.9 pg (25-34); MEAN CORPUSCULAR HGB CONC 34.1 g/dl (32-36); MEAN PLATELET VOLUME 9.7 fL (7.4-10.4); MONO % 10.9 %; NEUT % 43.7 %; PLATELET COUNT 357 K/uL (130-400); RED BLOOD COUNT 3.67 M/uL (4.2-5.4); WHITE BLOOD COUNT 5.58 K/uL (4.8-10.8)
[2016-04-25] MEDS: ASPIRIN 81 MG ECTAB PO SCH (07:32)
[2016-04-25] MEDS: ATORVASTATIN 40 MG TAB PO SCH (07:32)
[2016-04-25 07:34] VITALS: BP 118/80; PULSE 79; TEMP 36.8; O2SAT 96
[2016-04-25 07:35] LABS: BUN/CREATININE RATIO 16.9 (10-20); CALCIUM 8.1 mg/dl (8.5-10.1); CREATININE 0.64 mg/dl (0.60-1.20); POTASSIUM 3.6 mmol/L (3.5-5.1)
[2016-04-25 08:00] VITALS: O2SAT 97
--- NOTE | 2016-04-25 08:39 | Progress Note ---
Subjective Date of Service: Apr 25, 2016. Subjective Pt evaluation today including: conversation w/ patient, physical exam, lab review, review of studies, conversation w/ quality consultant, review of inpatient medication list Saw/examined the patient in room 218 Doing well, some slurred speech, but improving No motor dysfunction Problem List Medical Problems: (1) Acute focal neurological deficit Status: Acute Review of Systems Constitutional: No chills, No fever ENT: + problem reported (speech slurring) Respiratory: No cough, No dyspnea on exertion, No shortness of breath, No sputum, No wheezing Cardiac: No chest pain Abdomen: No diarrhea, No nausea, No pain, No vomiting Neurologic: No balance problems, No memory loss, No numbness/tingling, No paralysis, No vertigo, No weakness Medications Current Inpatient Medications Medications (Trade) Dose Ordered Sig/Krys Route Start Time Stop Time Status Last Admin Dose Admin Enoxaparin Sodium 40 mg 40 mg Q24H SC 04/23/16 21:00 05/23/16 20:59 04/24/16 19:48 40 MG Sodium Chloride (Nss 1000ml) 1,000 ml @ 75 mls/hr [id number] IV 04/23/16 17:54 05/23/16 17:53 04/24/16 19:48 75 MLS/HR Acetaminophen (Tylenol Tab) 650 mg Q4H PRN PO 04/23/16 18:00 05/23/16 17:59 Ondansetron HCl (Zofran Inj) 4 mg Q6H PRN IV 04/23/16 18:00 05/23/16 17:59 Atorvastatin Calcium (Lipitor Tab) 40 mg QAM PO 04/23/16 18:00 05/23/16 17:59 04/25/16 07:32 40 MG Aspirin (Ecotrin Tab) 81 mg QAM PO 04/24/16 09:00 05/24/16 08:59 04/25/16 07:32 81 MG Miscellaneous Information (Pharmacist Discharge Med Rec Consult) 1 ea UD PRN N/A 04/23/16 18:00 05/23/16 17:59 Gadopentetate Dimeglumine (Magnevist) 20 ml UD PRN IV 04/23/16 19:15 04/27/16 19:14 Clopidogrel Bisulfate (plAVix TAB) 75 mg QAM PO 04/25/16 09:00 05/25/16 08:59 04/25/16 07:32 75 MG Ioversol (Optiray 320) 100 ml UD PRN IV 04/24/16 15:45 04/28/16 15:44 Objective Vital Signs Date Time Temp Pulse Resp B/P Pulse Ox O2 Delivery O2 Flow Rate FiO2 04/25/16 08:00 97 Room Air 04/25/16 07:34 36.8 79 20 118/80 96 Room Air 04/25/16 04:00 Room Air 04/25/16 03:35 36.9 72 17 111/75 97 Room Air 04/24/16 23:59 Room Air 04/24/16 23:18 36.8 71 18 102/68 98 Room Air 04/24/16 20:00 Room Air 04/24/16 18:59 36.7 81 18 109/72 96 Room Air 04/24/16 16:00 Room Air 04/24/16 15:20 36.8 87 18 119/76 96 Room Air 04/24/16 12:00 78 04/24/16 12:00 97 Room Air 04/24/16 10:33 37.1 78 20 107/72 96 Room Air Physical Exam General Appearance: no apparent distress, + pertinent finding (+slurring of speech, mild, improving) Eyes: PERRL, EOMI ENT: hearing grossly normal Respiratory/Chest: lungs clear, normal breath sounds, no respiratory distress, no accessory muscle use Cardiovascular: regular rate, rhythm, no edema, no murmur Abdomen: normal bowel sounds, non tender, soft Neurologic/Psychiatric: jet mechanic II-XII nml as tested, no motor/sensory deficits, alert, normal mood/affect, oriented x 3 Skin: normal color Lymphatic: no adenopathy Laboratory Results Last 24 Hours Test 04/25/16 06:15 White Blood Count 5.58 K/uL Red Blood Count 3.67 M/uL Hemoglobin 11.7 g/dL Hematocrit 34.3 % Mean Corpuscular Volume 93.5 fL Mean Corpuscular Hemoglobin 31.9 pg Mean Corpuscular Hemoglobin Concent 34.1 g/dl Platelet Count 357 K/uL Mean Platelet Volume 9.7 fL Neutrophils (%) (Auto) 43.7 % Lymphocytes (%) (Auto) 40.7 % Monocytes (%) (Auto) 10.9 % Eosinophils (%) (Auto) 4.1 % Basophils (%) (Auto) 0.4 % Neutrophils # (Auto) 2.44 K/uL Lymphocytes # (Auto) 2.27 K/uL Monocytes # (Auto) 0.61 K/uL Eosinophils # (Auto) 0.23 K/uL Basophils # (Auto) 0.02 K/uL RDW Standard Deviation 45.5 fL RDW Coefficient of Variation 13.2 % Immature Granulocyte % (Auto) 0.2 % Immature Granulocyte # (Auto) 0.01 K/uL Sodium Level 142 mmol/L Potassium Level 3.6 mmol/L Chloride Level 109 mmol/L Carbon Dioxide Level 25 mmol/L Anion Gap 8.0 mmol/L Blood Urea Nitrogen 11 mg/dl Creatinine 0.64 mg/dl Est Creatinine Clear Calc Drug Dose 125.1 ml/min Estimated GFR () 123.2 Estimated GFR (Non- 106.3 BUN/Creatinine Ratio 16.9 Random Glucose 87 mg/dl Calcium Level 8.1 mg/dl Assessment and Plan This is a 45 year old female with PMH of past tobacco use (quit in June 2015) - presents with slurred speech and found to have an acute CVA Acute Left Thalamic CVA 04/25 * appreciate cardiology and neurology input * small PFO suspected on TTE * a PING is scheduled for April 30 * she is on aspirin, plavix, statin - will continue as outpatient * to see neurology as outpatient - possible cardionet as outpatient * hypercoag work-up pending * CTA and U/S done yesterday, no thromboemboli noted * speech therapy 3 x week 04/26 * Brain MRI = 1.5cm acute left thalamic CVA * patient started on aspirin and statin * neuro checks * PT/OT/speech * hypercoagulable w/up is pending * neuro consult pending for further recommendations * will monitor in tele to r/o arrhythmias DVT ppx * Lovenox FULL CODE
[2016-04-25] MEDS ORDERED: ASPEC81 PO (08:40)
[2016-04-25] MEDS ORDERED: PLV75 PO (08:40)
[2016-04-25] MEDS ORDERED: LPT40 PO (08:40)
[2016-04-25] MEDS ORDERED: CLOPIDOGREL BISULFATE 75 MG TAB PO SCH (09:00)
--- NOTE | 2016-04-25 09:02 | Discharge Instructions ---
Discharge Instructions Admission Reason for Admission: CVA Discharge Discharge Diagnosis / Problem: Acute Thalamic CVA Discharge Goals Goal(s): Decrease discomfort, Improve function, Diagnostic testing, Therapeutic intervention Activity Recommendations Activity Limitations: resume your previous activity . Instructions / Follow-Up Instructions / Follow-Up Please follow-up with primary care physician Please follow-up with neurology - you will get a phone call with an appointment date/time * You will be started on aspirin, Plavix and Lipitor - take these daily * You are scheduled for a transthoracic echo (ultrasound of the heart) on April 30 - please do not eat anything after midnight on Wednesday * Continue speech therapy three times weekly * You may need a CardioNet (heart monitor) that will be set up with neurology * Hypercoagulable workup (lab work) will be followed up with neurology and primary care Current Hospital Diet Patient's current hospital diet: AHA Diet (Heart Healthy) Discharge Diet Recommended Diet: AHA Diet (Heart Healthy) Pending Studies Studies pending at discharge: no Laboratory Results Hemoglobin A1c Test 04/23/16 16:10 Range/Units Estimated Average Glucose 114 mg/dl Hemoglobin A1c 5.6 4.5-5.6 % Lipid Panel Test 04/24/16 06:48 Range/Units Triglycerides Level 133 0-150 mg/dl Cholesterol Level 169 0-200 mg/dl HDL Cholesterol 41 mg/dl Cholesterol/HDL Ratio 4.1 LDL Cholesterol, Calculated 101 mg/dl Medical Emergencies . Who to Call and When: Medical Emergencies: If at any time you feel your situation is an emergency, please call 911 immediately. . Non-Emergent Contact Non-Emergency issues call your: Primary Care Provider, Neurologist . . "Provider Documentation" section prepared by Alonso Weinberg. VTE Core Measure Inpt VTE Proph given/why not?: Enoxaparin (Lovenox)SQ
--- NOTE | 2016-04-25 09:03 | Discharge Summary ---
Discharge Summary Admission Date: Apr 23, 2016 at 17:58 Discharge Date: Apr 25, 2016 Discharge Disposition: Home Principal Diagnosis: Acute Thalamic CVA Medication Reconciliation New Medications: Aspirin (Aspirin EC Low Dose) 81 Mg Ectab 81 MG PO QAM for 90 Days, #90 TABS Atorvastatin (Atorvastatin Calcium) 40 Mg Tab 40 MG PO QAM for 90 Days, #90 TAB Clopidogrel Bisulfate (Clopidogrel) 75 Mg Tab 75 MG PO QAM for 90 Days, #90 TAB Continued Medications: Calcium Citrate-Vitamin D (Citracal + D3 Maximum) 1 Tab Tab 1 TAB PO DAILY Famotidine (Pepcid) Unknown Strength Tab 1 TAB PO DAILY PRN for ACID REFLUX, TAB Ocuvite Preservision (Ocuvite Preservision) 1 Tab Tab 1 TAB PO DAILY, TAB Admission Information HPI (per Admitting provider): Patient is a 45 yr old female with PMH of former Tobacco use disorder and no other significant PMH presents with history of sudden onset of blurry vision and speech disturbance. Patient states that she noticed having blurry vision last night which resolved when she woke up this morning but started to notice to have slurred speech this morning. Patient denies similar symptoms in the past. Her coworker noticed her to have slurred speech and sent to ED for further eval. She states her slurred speech has improved since onset. Currently denies any blurry vision but has dizziness. Denies any history of facial deformity, weakness, numbness, vertigo, headache, chest pain, SOB, bowel/ bladder incontinence, nausea, vomiting, abd pain, fever, chills. Physical Exam (per Admitting): General Appearance: WD/WN, no apparent distress Head: normocephalic, atraumatic Eyes: normal inspection, PERRL, EOMI, sclerae normal ENT: normal ENT inspection, hearing grossly normal, TMs normal, pharynx normal Neck: supple, no JVD, trachea midline Respiratory/Chest: chest non-tender, lungs clear, normal breath sounds, no respiratory distress, no accessory muscle use Cardiovascular: regular rate, rhythm, no edema, no JVD, no murmur Abdomen/GI: normal bowel sounds, non tender, soft, no organomegaly Back: normal inspection Extremities/Musculoskelatal: normal inspection, no calf tenderness, no pedal edema, normal range of motion, non-tender Neurologic/Psych: no motor/sensory deficits, alert, normal mood/affect, normal reflexes, oriented x 3, + pertinent finding (Slurred speech) Skin: normal color, warm/dry Lymphatic: no adenopathy Hospital Course This is a 45 year old female with PMH of past tobacco use (quit in June 2015) - presents with slurred speech and found to have an acute CVA Acute Left Thalamic CVA 04/25 * appreciate cardiology and neurology input * small PFO suspected on TTE * a PING is scheduled for April 30 * she is on aspirin, plavix, statin - will continue as outpatient * to see neurology as outpatient - possible cardionet as outpatient * hypercoag work-up pending * CTA and U/S done yesterday, no thromboemboli noted * speech therapy 3 x week 04/26 * Brain MRI = 1.5cm acute left thalamic CVA * patient started on aspirin and statin * neuro checks * PT/OT/speech * hypercoagulable w/up is pending * neuro consult pending for further recommendations * will monitor in tele to r/o arrhythmias DVT ppx * Lovenox FULL CODE Total time spent on discharge = 35 minutes This includes examination of the patient, discharge planning, medication reconciliation, and communication with other providers. Discharge Instructions Please follow-up with primary care physician Please follow-up with neurology - you will get a phone call with an appointment date/time * You will be started on aspirin, Plavix and Lipitor - take these daily * You are scheduled for a transthoracic echo (ultrasound of the heart) on April 30 - please do not eat anything after midnight on Wednesday * Continue speech therapy three times weekly * You may need a CardioNet (heart monitor) that will be set up with neurology * Hypercoagulable workup (lab work) will be followed up with neurology and primary care
--- NOTE | 2016-04-25 09:56 | PROGRESS NOTE ---
DATE: 04/25/2016 DATE: 04/25/2016. SUBJECTIVE: I am seeing Brigitte in followup of an acute left thalamic infarction with little in the way of risk factor other than longstanding history of smoking, which she stopped about a year ago and mildly elevated LDL. She appears to have a PFO on TTE venous ultrasound of the upper and lower extremities, did not show any clots and CT of the abdomen and pelvis did not see any venous thrombosis. She has not had any new neurologic symptoms nor headache. She notes some mild difficulty with writing. OBJECTIVE: GENERAL: She is awake and alert, oriented. Speech is dysarthric. Repetition naming 3-step commands are normal, 36.8, 79, 20, 118/80, 96%. No carotid bruits. No heart murmurs. Normal visual giles, marginal flattening of the right nasolabial fold at rest, mild dysarthria. MOTOR: Minor decrease in right fresco artist strength and bicep although there does not appear to be appreciable drift. There is marginally decreased right rapid alternating movements. Lower extremities seems symmetric. Reflex decreased in the right upper and right lower. Toes downgoing. No sensory loss to light touch. [id number] was normal. Her gait was unremarkable. IMPRESSION: Left thalamic infarction likely small vessel atherosclerotic/thrombotic. Continue aspirin, Plavix, statin, outpatient PING and I will likely arrange CardioNet. She will have some outpatient speech therapy. She will practice her writing, have an appointment made with us in about 10 days or so so we can ultimately returned her to work when she is ready. KUSH
[2016-04-25 10:12] VITALS: BP 118/80; PULSE 79; TEMP 36.8; O2SAT 97
--- NOTE | 2016-04-25 15:05 | Pharmacy Progress Note ---
Pharmacist Stroke Counseling Date of Service Apr 25, 2016. Scope Pharmacy has been consulted to provide medication discharge counseling for this patient admitted with ischemic stroke as per the Pharmacist Discharge Counseling for Stroke Patients Protocol. Medications on Discharge New Medications: Aspirin (Aspirin EC Low Dose) 81 Mg Ectab 81 MG PO QAM for 90 Days, #90 TABS Atorvastatin (Atorvastatin Calcium) 40 Mg Tab 40 MG PO QAM for 90 Days, #90 TAB Clopidogrel Bisulfate (Clopidogrel) 75 Mg Tab 75 MG PO QAM for 90 Days, #90 TAB Continued Medications: Calcium Citrate-Vitamin D (Citracal + D3 Maximum) 1 Tab Tab 1 TAB PO DAILY Famotidine (Pepcid) Unknown Strength Tab 1 TAB PO DAILY PRN for ACID REFLUX, TAB Ocuvite Preservision (Ocuvite Preservision) 1 Tab Tab 1 TAB PO DAILY, TAB Action The above medications, specifically ones for stroke treatment/prophylaxis, have been reviewed in detail with the patient and/or patient workforce services representative(s) prior to discharge. This includes indication, common adverse reactions, drug interactions, and medication administration. Medication counseling has been employed using the teach-back method to ensure understanding. Outcome The patient and/or patient workforce services representative(s) have demonstrated understanding of the medications. Please note, they are aware that the pharmacist will call them within 72 hours post-discharge to confirm that the appropriate medications are being taken and answer any further medication related questions the patient might have at that time. Contact information Individual to be contacted: patient Relationship to patient (if applicable): N/A Phone number: [phone] Best time to call: not specified Additional comments: Reviewed aspirin, Plavix, and Lipitor extensively with patient. She really took no medications prior to hospitalization but appeared very interested in discharge counseling. She understood the directions well and was very attentive. I counseled regarding Prilosec + Plavix and she understood. She has an endoscopy planned for . Thank you for allowing pharmacy to be involved in the care of this patient. Please call [phone] or [phone] with any additional questions
[2016-04-28 15:18] LABS: LUPUS ANTICOAGULANT** TC36573X Negative (Negative)
--- NOTE | 2016-04-29 13:22 | Pharmacy Progress Note ---
Pharmacist Post D/C Phone Note Date of phone call: Apr 29, 2016. Individual with whom pharmacist spoke to: Brigitte Bourgeois The following questions were reviewed during the phone call with responses listed below each: Can you tell me the medications that you are currently taking as well as when and how you take each medication? Medications Dose Route/Sig Max Daily Dose Days Date Category Aspirin EC Low Dose (Aspirin) 81 Mg Ectab 81 Mg PO QAM 90 04/25/16 Rx Atorvastatin Calcium (Atorvastatin) 40 Mg Tab 40 Mg PO QAM 90 04/25/16 Rx Clopidogrel (Clopidogrel Bisulfate) 75 Mg Tab 75 Mg PO QAM 90 04/25/16 Rx Ocuvite Preservision (Multivitamins/Minerals) 1 Tab Tab 1 Tab PO DAILY 04/23/16 Reported Pepcid (Famotidine) Unknown Strength Tab 1 Tab PO DAILY PRN 04/23/16 Reported Citracal + D3 Maximum (Calcium Citrate-Vitamin D) 1 Tab Tab 1 Tab PO DAILY 04/23/16 Reported When have you missed any doses of your medications? - denies missed doses What side effects are you having from your medications? - denies side effects What questions do you have about your medications? - patient reports no questions What problems are you having obtaining your medications? - Medications have been picked up from local pharmacy When is your next appointment with your primary care doctor? - Patient had appt. on 04/28/16. She reports no changes to medications. Additional comments: - Patient had questions regarding her endoscopy tomorrow. I transferred her to the Endoscopy suite, ext. [phone]. As per the Pharmacist Discharge Counseling for Stroke Patients Protocol, this phone call has been completed within 72 hours of discharge. Thank you for allowing us to be involved in the care of this patient.
== END 2016-04-25 11:38 | disposition home or self-care (01) | DRG 65 ==
LOC: ENRESERVDT → ENRESERVTM → EDBD 15:48 → C.EDB 15:53 → C.2T 17:58
PROVIDERS: ADMIT Internal Medicine; ATTEND Family Medicine
DX: I63.8 Other cerebral infarction (principal); Q21.1 Atrial septal defect; R47.81 Slurred speech; Z86.73 Personal history of transient ischemic attack (TIA), and cerebral infarction without residual deficits; Z87.891 Personal history of nicotine dependence; H53.8 Other visual disturbances; K21.9 Gastro-esophageal reflux disease without esophagitis

== ENCOUNTER → 2016-04-30 | Day surgery (SDC) | payer BC ==
[2016-04-30] VITALS (8 sets, daily range): BP systolic 83–122; BP diastolic 43–68; PULSE 71–81; TEMP 36.6; O2SAT 96–99; Ht 165.1 cm; Wt 97.0 kg
[~2016-04-30] VITALS: Ht 165.1 cm; Wt 97.0 kg
[~2016-04-30] MED LIST: ASPEC81 PO; CALC1TAB9 PO; FAMO20TA11 PO; FENTANYL CITRATE INJ 50 MCG/1 ML 2 ML VIAL ONE; LIDOCAINE HCL 2% 2 ML VIAL (20MG/ML) ONE; LPT40 PO; MIDAZOLAM HCL 1 MG/ML 2ML VIAL ONE; MULT-190 PO; PLV75 PO; PROPOFOL IV EMULSION 10 MG/ML 20 ML VIAL IV ONE
--- NOTE | 2016-04-30 08:39 | Discharge Instructions ---
Discharge Instructions Procedure Procedure Date: Apr 30, 2016. Reason for Visit: *Manny To Do*, With Anesthesia, Stroke. Discharge Discharge Date: Apr 30, 2016. Discharge Diagnosis: Patent foramina ovale Last Recorded Wt (Kilograms): 97 Anesthesia Post Anesthesia Instructions: If you have had General Anesthesia or IV Sedation: * Do not drive today. * Resume driving when surgeon permits. * Do not make important decisions or sign legal documents today. * Call surgeon for: 1. Temperature elevations greater than 101 degrees F. 2. Uncontrollable pain. 3. Excessive bleeding. 4. Persistent nausea and vomiting. 5. Medication intolerance (nausea, vomiting or rash). * For nausea and vomiting use only clear liquids such as: tea, soda, bouillon until nausea subsides, then gradually increase diet as tolerated. * If you have any concerns or questions, call your surgeon's office. If physician is unavailable and it is an emergency, call 911 or go to the nearest emergency room. Instructions Activity Recommendations: limitations as noted below Return to School/Work: with the following limitations Recommended Home Diet: resume previous diet Allergies: Coded Allergies: No Known Allergies (Unverified , 04/23/16) Provider Instructions ACTIVITY RECOMMENDATIONS: Resume activities as tolerated with no limitations unless specified. _x_ No lifting over _5_ pounds for 24 hours. _x_ Do not engage in vigorous exercise, sexual activity, or sports for 24 hours. _x_ Do not drive or operate any motorized equipment for 24 hours. _x_ You may return to work/school tomorrow. _x_ Nothing to eat or drink until gag reflex returns. _x_ No HOT or WARM liquids for 12 hours. __ Avoid "scratchy" foods such as potato chips or pretzels for 24 hours following procedure. SPECIAL CARE: If you experience coughing up or vomiting of blood, contact Dr. Bryant [phone] Follow Up [facility] Recommendations: Call your doctor if: * Temperature above 101 degrees * Pain not relieved by pain medicine ordered * There is increased drainage or redness from any incision * You have any unanswered questions or concerns. Your Doctors Instructions noted above were prepared by provider Jovanni Bryant. Patient Signature Section: Patient Instructions Signature Page Brigitte Bourgeois Patient (or Guardian) Signature/Date: I have read and understand the instructions given to me by my caregivers. Caregiver/RN/Doctor Signature/Date: The above-named patient and/or guardian has received patient instructions on this date. + Original Patient Signature Page (only) stays with chart. Please make copy for patient.
--- NOTE | 2016-04-30 08:42 | Anesthesiology Progress Note ---
Anesthesia Post Op Note Date & Time Apr 30, 2016 at 08:42 Vital Signs Pain Intensity: 0 Vital Signs Past 12 Hours Date Time Temp Pulse Resp B/P Pulse Ox O2 Delivery O2 Flow Rate FiO2 04/30/16 08:30 75 16 102/62 98 Room Air 04/30/16 08:16 79 16 107/57 98 Room Air 04/30/16 08:06 75 16 109/59 98 Room Air 04/30/16 08:00 75 16 122/68 99 Nasal Cannula 3 04/30/16 07:56 74 16 83/49 99 Nasal Cannula 3 04/30/16 07:51 71 16 92/43 96 Nasal Cannula 3 04/30/16 07:46 75 16 85/45 96 Nasal Cannula 3 04/30/16 07:41 81 16 89/55 96 Nasal Cannula 3 04/30/16 07:36 76 16 116/60 96 Nasal Cannula 3 04/30/16 07:02 36.6 77 16 122/62 99 Room Air Notes Mental Status: alert / awake / arousable, participated in evaluation Pt Amnestic to Procedure: Yes Nausea / Vomiting: adequately controlled Pain: adequately controlled Airway Patency, RR, SpO2: stable & adequate BP & HR: stable & adequate Hydration State: stable & adequate Anesthetic Complications: no major complications apparent
--- NOTE | 2016-04-30 16:51 | TEE ---
*NOTICE TO RECEIVING REPUBLICAN AGENCY This information is strictly Confidential and protected under [place] law. [place] law prohibits you from making any further disclosure of this information unless further disclosure is expressly permitted by the written consent of the person to whom it pertains or is authorized by law. A general authorization for the release of medical or other information is not sufficient for this purpose. Hospital accepts no responsibility if the information is made available to any other person, INCLUDING THE PATIENT. Interpretation Summary * Name: EDIN RAMIREZ Study Date: 04/30/2016 08:05 AM BP: 122/62 mmHg * Patient Location: [facility] HR: 74 * : 1970 (M/d/yyyy) Gender: Female Height: 65 in * Age: 45 yrs Ethnicity: [place] Weight: 213 lb * Ordering Physician: Edward Cruz DO, [facility] * Performed By: Lilly Jacobs RCS * * Reason For Study: CVA * BSA: 2.0 m2 * -- Conclusions -- * No thrombus is detected in the left atrial appendage. * No significant atheroma in visualized segments of the ascending and descending thoracic aorta. * Ejection Fraction = 60-65%. * No significant valvular pathology. Procedure Details * PING Probe #3 was utilized in the procedure. 160 mg of Propofol was administered by anesthesia. 2 mg of Versed was administered by anesthesia. 100 mg of Fentanyl was administered by anesthesia. 80 mg of Lidacaine was administered by anesthesia. * The study was performed in Cardiac Catheterization Lab. * Time out was conducted by the physician, nurse, and coroner forensic technician with positive identification of patient and procedure. * Informed consent for Transesophageal Echocardiogram was obtained prior to the procedure. * An intravenous line was placed. A topical anesthetic agent was used for oropharangeal anesthesia. A bite block was inserted. * Sedation performed by the anesthesia department. * The posterior oropharynx was anesthetized using a topical anesthetic spray. A bite guard was inserted. * A multifrequency, multiplane transesopheageal echocardiographic endoscope was inserted and manipulated in the standard fashion to achieve multiplane views. * The transesophageal probe was passed without difficulty. * The usual views were obtained; basal, mid-esophageal, transgastric and aortic views. * The patient tolerated the procedure well without evidence of orophangeal or esophageal trauma. * A 2D transesophageal echocardiogram with spectral and color flow Doppler was performed. * Contrast injection with agitated saline was performed. Left Ventricle * The left ventricle is normal in size. * There is no thrombus. * There is normal left ventricular wall thickness. * Left ventricular systolic function is normal. * Ejection Fraction = 60-65%. * The left ventricular wall motion is normal. Right Ventricle * The right ventricle is normal in size and function. Atria * The left atrial size is normal. * No thrombus is detected in the left atrial appendage. * Right atrial size is normal. * Doppler suggests right to left interatrial shunt. * A patent foramen ovale is present. Mitral Valve * The mitral valve anatomy is normal. * There is no mitral valve stenosis. * Significant mitral regurgitation is absent. Tricuspid Valve * The tricuspid valve is normal. * There is no tricuspid stenosis. * Significant tricuspid regurgitation is absent. Aortic Valve * The aortic valve is trileaflet. * No hemodynamically significant valvular aortic stenosis. * No aortic regurgitation is present. Pulmonic Valve * The pulmonic valve is not well seen, but is grossly normal. Great Vessels * The aortic root is normal size. * Ascending aorta of normal dimension * No significant atheroma in visualized segments of the ascending and descending thoracic aorta. Pericardium * There is no pericardial effusion.
== END | disposition home or self-care (01) ==
LOC: C.CATH 06:28
PROVIDERS: ATTEND Internal Medicine Cardiovascular Disease
DX: Q21.1 Atrial septal defect (principal); Z86.73 Personal history of transient ischemic attack (TIA), and cerebral infarction without residual deficits; Z98.51 Tubal ligation status; Z82.49 Family history of ischemic heart disease and other diseases of the circulatory system; Z83.518 Family history of other specified eye disorder; Z87.891 Personal history of nicotine dependence

== ENCOUNTER → 2016-07-21 | Outpatient (CLI) | payer BC ==
[~2016-07-21] MED LIST changes: -FENTANYL CITRATE INJ 50 MCG/1 ML 2 ML VIAL ONE; -LIDOCAINE HCL 2% 2 ML VIAL (20MG/ML) ONE; -MIDAZOLAM HCL 1 MG/ML 2ML VIAL ONE; -PROPOFOL IV EMULSION 10 MG/ML 20 ML VIAL IV ONE
--- NOTE | 2016-07-21 08:46 | DIAGNOSTIC IMAGING REPORT ---
CHEST CT WITHOUT CONTRAST CT DOSE: HISTORY: Follow-up pulmonary nodule. Abnormal CT. TECHNIQUE: Multiaxial CT images of the chest were performed without contrast. COMPARISON: Abdomen and pelvis CT 04/24/2016. FINDINGS: The central airways are patent. No pleural effusions. No pneumothorax. A 3 mm subpleural nodule within the left lower lobe on image 150, 4 mm subpleural nodule within the lingula on image 184, 3 mm nodule within the right lung apex on image 55, calcified granuloma within the right upper lobe anteriorly, 4 mm subpleural nodule along the right minor fissure on image 141, 4 mm subpleural nodule within the right middle lobe on image 180, 2 mm subpleural nodule within the right lower lobe on image 175, 4 mm nodule within the right lower lobe in image 162. Calcified right hilar lymph nodes. The heart is normal in size. No mediastinal or hilar lymphadenopathy. Normal caliber thoracic aorta. The visualized liver and adrenal glands are unremarkable. Calcified splenic granulomas. IMPRESSION: 1. A few scattered indeterminate subcentimeter pulmonary nodules as described above measuring up to 4 mm. Please refer to the chart below for recommended follow-up. 2. Evidence for prior granulomatous disease. Please refer to below summary of Fleischner criteria recommendations for follow-up of incidental CT nodules (Verna Partida, Guidelines for management of small pulmonary nodules detected on CT scans: A statement from the Fleischner Society, Radiology 237: [phone].) SOLID NODULES Solitary nodule size: <6 mm * Low risk patients: no follow-up needed * high risk patients: optional CT at 12 months Solitary nodule size: 6-8 mm * Low risk patients: follow-up at 6-12 months, then consider further follow-up at 18-24 months * high risk patients: initial follow-up CT at 6-12 months and then at 18-24 months if no change Solitary nodule size: >8 mm * either low or high risk patients - consider follow-up CT at 3 months, and/or CT-PET, and/or biopsy Multiple nodules size: <6 mm * Low risk patients: no routine follow-up * high risk patients: optional CT at 12 months Multiple nodules size: 6-8 mm * Low risk patients: follow-up at 3-6 months, then consider further follow-up at 18-24 months * high risk patients: follow-up at 3-6 months, then at 18-24 months if no change Multiple nodules size: >8 mm * Low risk patients: follow-up at 3-6 months, then consider further follow-up at 18-24 months * high risk patients: follow-up at 3-6 months, then at 18-24 months if no change Note: newly detected indeterminate nodule in persons 35 years of age or older. * Low risk patients: minimal or absent history of smoking and/or other known risk factors * high risk patients: history of smoking or of other known risk factors (e.g. first degree relative with lung cancer, or exposure to asbestos, radon, uranium) * if a nodule up to 8 mm is partly solid or is ground glass further follow-up is required after 24 months to exclude possible slow growing adenocarcinoma ([facility]AREN) SUBSOLID NODULES Solitary pure ground-glass nodule * nodule size <6 mm - no CT follow-up required * nodule size >=6 mm - follow-up CT at 6-12 months, then every 2 years until 5 years Solitary part-solid nodule * nodule size <6 mm - no CT follow-up required * nodule size >=6 mm - follow-up CT at 3-6 months. If unchanged, and solid component remains <6 mm, then annual follow-up for 5 years Multiple subsolid nodules * nodule size <6 mm - follow-up CT at 3-6 months, consider further follow-up at 2 and 4 years if stable * nodule size >=6 mm - follow-up CT at 3-6 months, subsequent management based on the most suspicious nodule(s) Electronically signed by: Markie Sánchez M.D. 07/21/2016 8:44 AM Dictated Date/Time: 07/21/2016 8:38 AM
== END | disposition home or self-care (01) ==
LOC: C.CTS 08:13
PROVIDERS: ATTEND Family Medicine
DX: R91.8 Other nonspecific abnormal finding of lung field (principal)